=== PATIENT | female | born 1935 | race Caucasian/White ===

== ENCOUNTER 2016-11-21 09:59 | Emergency (ER) | payer OTHER ==
--- NOTE | ~2016-11-21 | CR72 ---
[facility] A Service of [facility] RADIOLOGY TEXT RESULTS PATIENT: JUAN ANTONIO ALFARO LOCATION: [facility] : 35 UNIT #: [id number] AGE: [address]: Garett Cartwright MD SEX: F ORDER DR: [id number] [facility] [address] [place], [place] [address] [id number] MR#: [id number] Acc #: [id number] NAME: JUAN ANTONIO ALFARO : 1935 SEX: F STUDY DATE/TIME: 11/21/2016 10:21 UNIT: [facility] ROOM: STUDY DESCRIPTION: CR Chest Single View Portable Attending Physician: Garett Cartwright M.D. Ordering Physician: Garett Cartwright M.D. Primary Care Physician: Yves Howell Jr., M.D. MEDICAL IMAGING REPORT This report is preliminary unless electronic signature is present EXAM Portable chest INDICATION Cough, shortness of air today. FINDINGS A portable view of the chest was obtained. The heart size and vascularity are normal and the lungs are clear. The bones are unremarkable. IMPRESSION No active disease. Dictated by... Maurice Newberry M.D. THIS IS AN ELECTRONICALLY VERIFIED REPORT Maurice Newberry M.D. at 11/21/2016 2:49 PM ZINA/rayray TD: 11/21/2016 13:20 JOB #: [id number] MEDICAL IMAGING REPORT Page 1 of 1 COPY
--- NOTE | ~2016-11-21 | EKG ---
PATIENT: JUAN ANTONIO ALFARO UNIT #: [id number] Ventricular Rate: 111 BPM Atrial Rate: 111 BPM P-R Interval: 148 ms QRS Duration: 126 ms Q-T Interval: 374 ms QTC Calculation(Bezet): 508 ms P Nelson: 75 degrees Calculated R Nelson: 103 degrees Calculated T Nelson: 14 degrees Diagnosis Line: Sinus tachycardia Diagnosis Line: Right bundle branch block Diagnosis Line: Abnormal ECG Diagnosis Line: No previous ECGs available Diagnosis Line: Confirmed by DORINDA ROJAS MD ([id number]) on 11/24/2016 Diagnosis Line: 7:00:14 AM INTERPRETING MD: BOB BASILIO
[~2016-11-21 09:59] MED LIST: ATENOLOL25 MG PO; ATORVASTATIN CA80 MG PO; FLUOXETINE HCL20 M1 PO; LISINOPRIL5 MG PO; METFORMIN HCL500 M1 PO; MULTIPLE VITAMI1 T13 PO
[2016-11-21 11:00] LABS: BASOPHIL# 0.1 X10e3 (0-0.3); BASOPHIL% 0.9 % (0-2.5); EOSINOPHIL# 0.2 X10e3 (0-0.7); HEMOGLOBIN 13.1 gm/dL (12.0-16.0); LYMPHOCYTE# 1.7 X10e3 (1.0-3.5); LYMPHOCYTE% 17.4 % (17.0-45.0); MEAN CELL VOLUME 82.6 FL (83-96); MEAN CORPUSCULAR HEMOGLOBIN 27.8 PG (28-34); MEAN CORPUSCULAR HGB CONC 33.6 g/dL (30-36); MEAN PLATELET VOLUME 7.8 FL (6.5-11.5); MONOCYTE# 0.4 X10e3 (0-1.0); MONOCYTE% 3.9 % (3.0-12.0); NEUTROPHIL# 7.6 X10e3 (1.5-7.1); NEUTROPHIL% 75.8 % (40-75); PLATELET COUNT 270 X10e3 (140-420); RED BLOOD COUNT 4.71 X10e (3.90-5.30); RED CELL DISTRIBUTION WIDTH 14.4 % (11.0-15.5)
[2016-11-21 11:01] LABS: DIFF IND NO
[2016-11-21 11:05] LABS: POC - CKMB 1.8 ng/mL (0.0-7.9); POC - TROPONIN <0.05 ng/mL (<=0.05)
[2016-11-21 11:27] LABS: ALBUMIN SERUM 4.3 g/dL (3.5-5.0); BILIRUBIN, DIRECT 0.1 mg/dL (0.0-0.2); BILIRUBIN,INDIRECT 0.4 mg/dL (0.0-0.9); BILIRUBIN,TOTAL 0.5 mg/dL (0.2-2.0); BUN/CREATININE RATIO 28.57; CALCIUM SERUM 9.4 mg/dL (8.4-10.2); CREATININE SERUM 0.7 mg/dL (0.6-1.4); GLOM FILT RATE Estimated 81.3 mL/min (>60); POTASSIUM 3.9 mmol/L (3.5-5.1); PROTEIN TOTAL SERUM 7.6 g/dL (6.0-8.3)
[2016-11-21 12:32] LABS: POC - CKMB 1.5 ng/mL (0.0-7.9); POC - TROPONIN <0.05 ng/mL (<=0.05)
[2016-11-21 12:36] LABS: URINE SOURCE CLEAN CATCH
[2016-11-21 12:41] LABS: URINE APPEARANCE CLEAR; URINE BILIRUBIN NEG (NEG); URINE BLOOD NEG (NEG); URINE COLOR YELLOW; URINE GLUCOSE NEG (NEG); URINE KETONE NEG (NEG); URINE LEUKOCYTE ESTERASE NEG (NEG); URINE NITRATE NEG (NEG); URINE PH 7.5 (5-8); URINE PROTEIN 1+ (NEG); URINE SPECIFIC GRAVITY 1.013 (1.003-1.035); URINE UROBILINOGEN 0.2 MG/DL (NEG)
[2016-11-21 12:44] LABS: CULTURE INDICATED? NO; U HYALINE CASTS AUWI 0-2 /[LPF]; URBCS1 AUWI 0-2 /[HPF] (0-2); URINE BACTERIA AUWI NEG (NEGATIVE); URINE SQUAMOUS EPITHELIAL CELL OCC /[HPF]; UWBCS1 AUWI 0-2 (0-5)
== END 2016-11-21 13:29 | disposition home or self-care (01) ==
LOC: CED 09:59
PROVIDERS: Emergency Medicine
DX: J44.1 Chronic obstructive pulmonary disease with (acute) exacerbation (principal); E11.9 Type 2 diabetes mellitus without complications; I10 Essential (primary) hypertension; E78.5 Hyperlipidemia, unspecified
CPT/HCPCS: 36415; 51701; 71010; 80048; 80076; 81003; 82553; 84484; 85025; 87040; 93005; 94640; 99285; J2930

== ENCOUNTER 2016-11-25 17:48 | Inpatient (IN) | payer OTHER ==
[~2016-11-25] VITALS: Ht 157.5 cm; Wt 54.6 kg
--- NOTE | ~2016-11-25 | CT16 ---
[facility] A Service [facility] RADIOLOGY TEXT RESULTS PATIENT: JUAN ANTONIO ALFARO LOCATION: [facility] 302-01 : 35 UNIT #: [id number] AGE: [address]: Pablo Juárez MD SEX: F ORDER DR: [id number] [place], [place] [address] [id number] I MR#: [id number] Acc #: [id number] NAME: JUAN ANTONIO ALFARO : 1935 SEX: F STUDY DATE/TIME: 11/30/2016 19:53 UNIT: [facility] ROOM: [facility] STUDY DESCRIPTION: CT Angio Chest for PE Attending Physician: Pablo Juárez M.D. Referring Physician: Primary Care Physician No Ordering Physician: Croey Winston M.D. Primary Care Physician: Primary Care Physician No MEDICAL IMAGING REPORT This report is preliminary unless electronic signature is present EXAM CT angiogram chest with IV contrast HISTORY Shortness of air for 5 days. Elevated D-dimer. TECHNIQUE IV contrast enhanced CT angiogram of the chest was performed with 3-D reconstructions. This CT exam was performed with one or more of the following radiation dose reduction techniques: automatic exposure control, adjustment of mA and/or kV according to patient size, and iterative reconstruction. FINDINGS No pulmonary embolus. Normal pulmonary arterial enhancement. Minimal left pleural effusion. Mild subsegmental atelectasis in the anterior left lower lobe and in the inferior lower lobes bilaterally. Multifocal small patchy areas of subsegmental ground-glass infiltrate in the bilateral upper lobes could be infectious or inflammatory. Very small hiatal hernia. Mild dilatation of the descending thoracic aorta measuring 3.1 cm in diameter. IMPRESSION 1. No pulmonary embolus. 2. Minimal left pleural effusion. 3. Mild multifocal atelectasis in the lower lobes. 4. Multiple small patchy ground-glass infiltrates in the bilateral upper lobes are nonspecific and could be infectious or inflammatory. 5. Very small hiatal hernia. Dictated by... [facility] A Service [facility] RADIOLOGY TEXT RESULTS PATIENT: JUAN ANTONIO ALFARO LOCATION: [facility] 302-01 : 35 UNIT #: [id number] AGE: [address]: Pablo Juárez MD SEX: F ORDER DR: Sandro Ponce M.D. THIS IS AN ELECTRONICALLY VERIFIED REPORT Sandro Ponce M.D. at 12/01/2016 11:44 PM JAZZ/tamar TD: 12/01/2016 08:25 JOB #: [id number] MEDICAL IMAGING REPORT Page 1 of 1 COPY
--- NOTE | ~2016-11-25 | CR72 ---
[facility] A Service of [facility] RADIOLOGY TEXT RESULTS PATIENT: JUAN ANTONIO ALFARO LOCATION: [facility] 302-01 : 35 UNIT #: [id number] AGE: [address]: Pablo Juárez MD SEX: F ORDER DR: [id number] [facility] [address] [place], [place] [address] [id number] I MR#: [id number] Acc #: [id number] NAME: JUAN ANTONIO ALFARO : 1935 SEX: F STUDY DATE/TIME: 11/30/2016 5:48 UNIT: [facility] ROOM: [facility] STUDY DESCRIPTION: CR Chest Single View Portable Attending Physician: Pablo Juárez M.D. Referring Physician: No Primary Care Physician Ordering Physician: Corey Winston M.D. Primary Care Physician: No Primary Care Physician MEDICAL IMAGING REPORT This report is preliminary unless electronic signature is present EXAM Portable AP view of the chest COMPARISON November 29, 2016, November 26, 2016 and November 25, 2016. INDICATION 81-year-old female with dyspnea for 5 days. History of hypertension. COPD exacerbation requiring inpatient hospital admission. FINDINGS AND IMPRESSION Right arm PICC is stable with the tip terminating in the SVC. Cardiomediastinal silhouette is stable. No evidence of pneumothorax, pleural effusion or pneumonia. Skin fold artifact over the left chest. Dictated by... Rafael Coronado M.D. THIS IS AN ELECTRONICALLY VERIFIED REPORT Rafael Coronado M.D. at 12/03/2016 10:31 PM BLM/shadi TD: 11/30/2016 08:22 JOB #: [id number] MEDICAL IMAGING REPORT Page 1 of 1 COPY
--- NOTE | ~2016-11-25 | CO ---
Unit #: [id number] #: [id number] Patient: JUAN ANTONIO ALFARO 911140 [address] [address] [id number] MR#: [id number] NAME: JUAN ANTONIO ALFARO ROOM: [facility] Age: 81 Sex: F Admission Date: 11/25/2016 : 1935 Attending Physician: Pablo Juárez M.D. Primary Care Physician: No Primary Care Physician Consultation Date: 11/27/2016 CONSULTATION REPORT REASON FOR CONSULT ICU management. REASON FOR ADMISSION Shortness of breath and confusion. HISTORY OF PRESENT ILLNESS This is a very pleasant, 81-year-old female with past medical history significant for hypertension, hyperlipidemia, COPD, diabetes, depression, who presented to the emergency room with multiple issues including progressive shortness of breath, cough, confusion and urinary retention. Per daughter, the patient lives alone and she was very independent. The patient was seen at our emergency room a week ago for shortness of breath and she was released home. However, her condition continued worsen over time and she was becoming more short winded and coughing. There was no reported fever. The patient also was started on new inhalers which thought to contribute to urinary retention and low urine output. Yesterday night, the patient was transferred to our hospital again for worsening shortness of breath and confusion. The patient was admitted to the floor. However, she was transferred emergently overnight due to worsening respiratory status with hypoxia and restlessness. The patient was placed on BiPAP; however, her condition continued to decline and we had discussed with the family other options like intubation. However, family decided to give BiPAP more time before making any final decision. Luckily, in the meanwhile, the patient started responding further to BiPAP and her condition slightly improved. PAST MEDICAL HISTORY 1. Hypertension. 2. Hyperlipidemia. 3. COPD. 4. Depression. 5. Diabetes. 6. Degenerative joint disease. PAST SURGICAL HISTORY Bilateral total hip replacement. SOCIAL HISTORY The patient lives alone and she is very independent. She smoked one pack per day of tobacco from age 18 until age 80 but she stopped smoking a few Unit #: [id number] #: [id number] Patient: JUAN ANTONIO ALFARO years ago. No history of alcohol or drug abuse. FAMILY HISTORY Noncontributory given her age. ALLERGIES No known drug allergy. HOME MEDICATION Unavailable but, per daughter, the patient takes probably: 1. Spiriva. 2. Albuterol 3. Symbicort. 4. Metformin. 5. Lipitor. 6. Norvasc. 7. Prozac. 8. Atenolol. REVIEW OF SYSTEMS A 12-point review of systems we are unable to obtain as the patient is confused right now. PHYSICAL EXAMINATION GENERAL APPEARANCE: The patient is in acute distress, mainly respiratory. VITAL SIGNS: Blood pressure 167/73. Respiratory rate ranging between 30 to 40 times per minute. Heart rate 125. O2 saturation between 85 and 92. HEENT: Head: Atraumatic, normocephalic. PERRLA. EOMI. NECK: Supple. No JVD. No lymphadenopathy. CHEST: Diffuse bilateral wheezing and rhonchi. HEART: S1, S2. No murmur or gallops are auscultated. ABDOMEN: Soft, nontender. Bowel sounds positive. No hepatosplenomegaly. EXTREMITIES: No edema or cyanosis. SKIN: No rash. CENTRAL NERVOUS SYSTEM: Awake, alert but confused. She is moving all extremities with no focal weakness. DIAGNOSTIC STUDIES LABORATORY: Hematocrit 38.2, WBC count 12.8. Chloride 95. pCO2 52. IMAGING: Chest x-ray is consistent with right lower lobe pneumonia. ASSESSMENT 1. Acute hypoxic respiratory failure. 2. Toxic metabolic encephalopathy. 3. Community-acquired pneumonia. 4. Acute exacerbation of chronic obstructive pulmonary disease. 5. Hypertension. 6. Hyperlipidemia. 7. Diabetes. PLAN 1. The patient will be continued on BiPAP and maybe will transition to high flow if tolerated. Her CODE status is FULL and we discussed with the family possible intubation if needed. 2. We will adjust antibiotics to cover community-acquired pneumonia. 3. Bronchodilator and mucolytics. 4. IV steroids with caution given her history of diabetes. Unit #: [id number] #: [id number] Patient: JUAN ANTONIO ALFARO 5. Urinary retention per Urology. 6. Blood pressure and blood sugar control. Critical care time spent on this patient was 36 minutes. Dictated by... Shiva Guzman TD: 11/27/2016 14:07 JOB #: [id number] CONSULTATION REPORT Page 1 of 1 X FELICIA MISHRA MD CONSULTATION REPORT
--- NOTE | ~2016-11-25 | CR72 ---
[facility] A Service of [facility] RADIOLOGY TEXT RESULTS PATIENT: JUAN ANTONIO ALFARO [address]ATION: [address] : 35 UNIT #: [id number] AGE: [address]: Pablo Juárez MD SEX: F ORDER DR: [id number] [facility] [address] [place], [place] [address] [id number] I MR#: [id number] Acc #: [id number] NAME: JUAN ANTONIO ALFARO : 1935 SEX: F STUDY DATE/TIME: 11/29/2016 03:39 UNIT: [facility] ROOM: [facility] STUDY DESCRIPTION: CR Chest Single View Portable Attending Physician: Pablo Juárez M.D. Referring Physician: Primary Care Physician No Ordering Physician: Corey Winston M.D. Primary Care Physician: Primary Care Physician No MEDICAL IMAGING REPORT This report is preliminary unless electronic signature is present EXAM Portable chest, 11/29/2016 at 03:39 INDICATION Respiratory failure for 4 days. Smoker. FINDINGS AP portable chest compared with 11/26/2016. Heart is enlarged. Lung volumes are lower. There is some mild infiltrate or atelectasis in both bases. Right arm PICC at cavoatrial junction. No pneumothorax. Dictated by... See Lombardo Jr., M.D. THIS IS AN ELECTRONICALLY VERIFIED REPORT See Lombardo Jr., M.D. at 11/30/2016 3:15 AM RAFA/jorje TD: 11/29/2016 21:58 JOB #: [id number] MEDICAL IMAGING REPORT Page 1 of 1 COPY
--- NOTE | ~2016-11-25 | EKG ---
PATIENT: JUAN ANTONIO ALFARO UNIT #: [id number] Ventricular Rate: 87 BPM Atrial Rate: 87 BPM P-R Interval: 146 ms QRS Duration: 128 ms Q-T Interval: 404 ms QTC Calculation(Bezet): 486 ms P [place]: 77 degrees Calculated R [place]: 17 degrees Calculated T [place]: 35 degrees Diagnosis Line: Sinus rhythm with Premature atrial complexes Diagnosis Line: Right bundle branch block Diagnosis Line: Abnormal ECG Diagnosis Line: When compared with ECG of 21-NOV-2016 10:30, Diagnosis Line: Premature atrial complexes are now Present Diagnosis Line: Confirmed by DORINDA ROJAS MD ([id number]) on 11/26/2016 Diagnosis Line: 7:13:31 PM INTERPRETING MD: BOB BASILIO
--- NOTE | ~2016-11-25 | HP ---
Unit #: [id number] #: [id number] Patient: JUAN ANTONIO ALFARO [id number] [address] [place], [place] [address] [id number] I MR#: [id number] NAME: JUAN ANTONIO ALFARO ROOM: 07[address] Age: 81 Sex: F Admission Date: 11/25/2016 : 1935 Attending Physician: Wendy Fowler M.D. HISTORY AND PHYSICAL CHIEF COMPLAINT Urinary retention and COPD exacerbation with acute on chronic respiratory failure. HISTORY OF PRESENT ILLNESS This pleasant 81-year-old female with hypertension, COPD, and AODM, is admitted for shortness of breath and urinary retention. The patient has a history of COPD and developed increasing shortness of breath with bronchospasm about two weeks ago. She was seen both in this emergency department, as well as by [facility]. She was placed on three liters of oxygen two or three days ago. She states that she was also started on a new inhaler which probably was Symbicort. Over the past two days, she has been experiencing difficulty urinating. She currently is feeling quite a bit of bladder pressure and is unable to void. She has had a somewhat what sounds to be shy bladder in the past but has always been able to urinate at home without difficulty. In the emergency department, a bladder scan was performed, and the patient had over 900 mL of urine in her bladder. A Becker catheter was placed with improvement of symptoms. Her initial O2 saturation was 87% on three liters, and she was treated with Solu-Medrol, along with bronchodilators. On examination, she has significant bronchospasm. She does have a minor cough with the above, and chest x-ray shows no acute disease. She denies chest pain, increasing back pain, or constipation with the above, and no complaints of leg weakness. PAST MEDICAL HISTORY 1. Hypertension. 2. Hyperlipidemia. 3. Chronic obstructive pulmonary disease recently started on oxygen. 4. Adult-onset diabetes mellitus. 5. Depression. 6. Degenerative joint disease. 7. Bilateral total hip replacements. ALLERGIES No known drug allergies. HOME MEDICATIONS I believe patient was started on Spiriva recently. She uses albuterol, Symbicort 160/4.5 at 2 puffs b.i.d., metformin 500 mg b.i.d., Lipitor 80 mg daily, Norvasc 5 mg daily, Prozac 20 mg daily, and atenolol 25 mg daily. FAMILY HISTORY Unit #: [id number] #: [id number] Patient: JUAN ANTONIO ALFARO Noncontributory given patient's age. SOCIAL HISTORY The patient lives alone. She smoked one pack per day of tobacco from age 18 until age 80. She stopped smoking a year ago. She does not drink alcohol. REVIEW OF SYSTEMS Notable for increasing shortness of breath and bronchospasm, urinary retention, suprapubic pressure, diabetes, hypertension, hyperlipidemia, COPD, depression, DJD, and hip replacements. All other systems were reviewed and otherwise negative. PHYSICAL EXAMINATION GENERAL: A pleasant, thin, 81-year-old female currently in no acute distress. VITAL SIGNS: Temperature 99.1, pulse 92, respirations 16, blood pressure 146/85, and O2 saturation was 87% on 3 liters of oxygen. HEENT: Eyes PERRLA. Extraocular muscles are intact. Pharynx is benign. NECK: Supple without adenopathy or thyromegaly. CHEST: Expiratory wheezes throughout and rhonchi. CARDIAC: Normal S1 and S2 without definite murmur. ABDOMEN: Bowel sounds are present. Patient has suprapubic fullness on exam. No hepatosplenomegaly. EXTREMITIES: Without clubbing, cyanosis, or edema. Pedal pulses are diminished. NEUROLOGIC: Patient is awake, alert, and oriented. Her cranial nerves are intact. She has good strength throughout. DIAGNOSTIC STUDIES LABORATORY: Hematocrit 38.6, white blood count 12.8, and normal platelet count. SMA-12 with glucose 164, BUN 22, creatinine 0.7, and chloride is 95. Coags normal. Cardiac markers negative. ABG shows pH of 7.46, PCO2 of 35, PO2 of 52.4, and O2 saturation 87.4% on 3 liters of oxygen. Urinalysis with trace protein, otherwise negative. IMAGING: Chest x-ray with no acute disease and is unchanged. CARDIOLOGY: EKG shows sinus rhythm with PACs, rate about 88. Right bundle branch block which was noted recently as well. ASSESSMENT 1. Urinary retention. Will check the patient's inhalers. She states that she was recently started on an inhaler with the first letter S. I wonder if this is Spiriva. Spiriva does have anticholinergic effects. Possibly this is the cause of her urinary retention. 2. Chronic obstructive pulmonary disease exacerbation with acute on chronic hypoxic respiratory failure. 3. Essential hypertension. 4. Adult-onset diabetes mellitus. 5. Hyperlipidemia. 6. Depression. 7. Degenerative joint disease. PLANS 1. Will give gentle IV fluids given large urinary output. 2. Albuterol nebulizer, mucolytics, Symbicort, steroids, and doxycycline. Will ask family to bring in all inhalers. If the Unit #: [id number] #: [id number] Patient: JUAN ANTONIO ALFARO patient is taking Spiriva, would hold Spiriva as this can cause urinary retention. 3. Becker catheter, Flomax. 4. DVT and gastritis prophylaxis. 5. Sliding scale insulin for now. 6. Further workup and consultants depending on above. 1. Dictated by Shiva Krishnan/jaime TD: 11/25/2016 21:55 JOB #: [id number] CC: Yves Howell Jr., M.D. HISTORY AND PHYSICAL Page 1 of 1 X Wendy Fowler MD HISTORY AND PHYSICAL
--- NOTE | ~2016-11-25 | CR72 ---
[facility] A Service of [facility] RADIOLOGY TEXT RESULTS PATIENT: JUAN ANTONIO ALFARO LOCATION: [facility] 562- : 35 UNIT #: [id number] AGE: [address]: Pablo Juárez MD SEX: F ORDER DR: [id number] [facility] [address] [place], [place] [address] [id number] I MR#: [id number] Acc #: [id number] NAME: JUAN ANTONIO ALFARO : 1935 SEX: F STUDY DATE/TIME: 11/25/2016 18:28 UNIT: [facility] ROOM: [facility] STUDY DESCRIPTION: CR Chest Single View Portable Attending Physician: Wendy Fowler M.D. Referring Physician: Primary Care Physician No Ordering Physician: Aquilino Aparicio D.O. Primary Care Physician: Primary Care Physician No MEDICAL IMAGING REPORT This report is preliminary unless electronic signature is present EXAM Chest portable, 11/25/2016 18:28 hours HISTORY 81-year-old woman with 1-week history of shortness of air, weakness and nausea. History of hypertension, COPD, diabetes. COMPARISON 11/21/2016 FINDINGS Single upright portable view demonstrates normal heart size. Aorta is minimally tortuous but unchanged. The lungs remain clear. There is no effusion or pneumothorax. IMPRESSION No acute cardiopulmonary findings. No change from 11/21/2016. Dictated by... Jessica Arreguin M.D. THIS IS AN ELECTRONICALLY VERIFIED REPORT Jessica Arreguin M.D. at 11/26/2016 9:08 AM Shoaib TD: 11/26/2016 08:18 JOB #: [id number] MEDICAL IMAGING REPORT Page 1 of 1 COPY
--- NOTE | ~2016-11-25 | CT71 ---
[facility] A Service of [facility] RADIOLOGY TEXT RESULTS PATIENT: JUAN ANTONIO ALFARO LOCATION: [address] : 35 UNIT #: [id number] AGE: [address]: Pablo Juárez MD SEX: F ORDER DR: [id number] [facility] [address] [facility] [place], [place] [address] [id number] I MR#: [id number] Acc #: [id number] NAME: JUAN ANTONIO ALFARO : 1935 SEX: F STUDY DATE/TIME: 11/30/2016 19:51 UNIT: [facility] ROOM: [facility] STUDY DESCRIPTION: CT Head Wo Contrast Attending Physician: Pablo Juárez M.D. Referring Physician: Primary Care Physician No Ordering Physician: Corey Winston M.D. Primary Care Physician: Primary Care Physician No MEDICAL IMAGING REPORT This report is preliminary unless electronic signature is present EXAM Head CT without HISTORY Confusion and shortness of breath for 5 days. History of hypertension. History of diabetes and depression. COMMENT Routine noncontrast head CT is reviewed. There is no comparison. This CT exam was performed with one or more of the following radiation dose reduction techniques: Automatic exposure control, adjustment of mA and/or kV according to patient size, and iterative reconstruction. There is no displaced calvarial fracture. There is partial opacification of left side mastoid air cells with a small air-fluid level. Please correlate for clinical evidence of infection. The visualized paranasal sinuses show only mild mucosal thickening. There are vascular calcifications at the base of the brain. There is generalized atrophy and moderate white matter low attenuation, which is nonspecific but probably due to small vessel disease. The basilar cisterns are patent. There is no intracranial mass effect. There is no evidence for acute intracranial hemorrhage. Probably chronic lacunar insults and prominent perivascular spaces in the bilateral basal ganglia. If there is clinical concern for acute CVA, followup imaging would be suggested preferably with MRI if the patient is a candidate. No acute cortical infarct is currently suspected. IMPRESSION 1. Atrophy and probable sequelae of small vessel disease. No acute cortical infarct is suspected but if there is clinical concern for acute CVA, followup imaging would be suggested preferably with MRI if patient is candidate. 2. There is fluid partly opacifying the left side mastoid air cells with STS. [facility] A Service of [facility] RADIOLOGY TEXT RESULTS PATIENT: JUAN ANTONIO ALFARO LOCATION: [address] : 35 UNIT #: [id number] AGE: [address]: Pablo Juárez MD SEX: F ORDER DR: a small air-fluid level. Please correlate for clinical concern for infection. STAT * RESULT Dictated by... Myrtle Childs M.D. THIS IS AN ELECTRONICALLY VERIFIED REPORT Myrtle Childs M.D. at 11/30/2016 10:41 PM MICAELA/psc TD: 11/30/2016 20:41 JOB #: [id number] MEDICAL IMAGING REPORT Page 1 of 1 COPY
--- NOTE | ~2016-11-25 | CO ---
Unit #: [id number] #: [id number] Patient: EMILIA GARRISON [id number] [address] [address] [id number] I MR#: [id number] NAME: EMILIA GARRISON ROOM: [facility] Age: 81 Sex: F Admission Date: 11/25/2016 : 1935 Attending Physician: Pablo Juárez M.D. Primary Care Physician: Primary Care Physician No Consultation Date: 11/29/2016 CONSULTATION REPORT REASON FOR CONSULTATION Hyponatremia. Thank you very much for asking me to see this patient in consultation. HISTORY OF PRESENT ILLNESS Ms. Emilia Garrison is an 81-year-old, female, who presented to the hospital on 11/25/2016 complaining of shortness of breath as well as some difficulty urinating. She apparently had a bladder scan that showed 900 mL postvoid residual. Becker catheter was placed. The patient was started on steroids and antibiotics upon admission here. She was noted upon admission to have a sodium of 129, it decreased to 124 several days ago, 126 yesterday and back down to 123 today. Because of this, I was asked to see the patient. The patient was noted on 11/21/2016 to have a sodium of 135. She is alert, but very tired. She states she has never had any problems with her sodium that she knows of. She is a chronic smoker for many, many years, but stopped last year. PAST MEDICAL HISTORY 1. History of COPD. 2. History of urinary retention. 3. History of hypertension. 4. History of non-insulin dependent diabetes mellitus. 5. History of hyperlipidemia. 6. History of depression. 7. History of degenerative disk/joint disease, status post bilateral hips. ALLERGIES No known drug allergies. SOCIAL HISTORY Lives alone. Positive smoker until a year ago. None now. No alcohol. MEDICATIONS Currently include Prozac, which she was on when came in, Rocephin, hydralazine, Zosyn, Protonix, Tenormin, Solu-Medrol, doxycycline, atorvastatin, Zofran, Norvasc, and Flomax. REVIEW OF SYSTEMS She denies any headaches or dizziness currently. Visual problems, sinus problems. No cough. No hemoptysis. She denies any neck pain or neck stiffness. She says she is having some intermittent shortness of breath that is improving. She is nauseated today. No vomiting. She has decreased energy. She denies any severe abdominal pain. No significant Unit #: [id number] #: [id number] Patient: EMILIA GARRISON lower extremity swelling. No recent seizures, strokes or skin rashes. FAMILY HISTORY Noncontributory. PHYSICAL EXAMINATION GENERAL: She is alert. VITAL SIGNS: Temperature is 97.9, pulse 57 to 79, blood pressure 93 to 157/40s to 70s. She had 2871 in and 1645 out. She was on normal saline until yesterday evening and since admission, she has had about 2.8 L more in than out. HEENT: She is normocephalic and atraumatic. Pupils are equal, round, and reactive to light. Extraocular muscles are intact. Hearing appears normal. Mouth clear. No erythema. No exudate. NECK: Supple. No adenopathy. CARDIAC: She has regular rhythm without a rub. No S3 or S4. LUNGS: Have few bilateral rhonchi. ABDOMEN: Bowel sounds positive. Nontender. Soft. No masses felt. No hepato-organomegaly noted. EXTREMITIES: She has no lower extremity swelling. SKIN: No rashes. JOINTS: No joint pain or joint swelling. : Becker catheter is in place. DIAGNOSTIC STUDIES IMAGING STUDIES: Chest x-ray, which showed a right-sided pneumonia. LABORATORY RESULTS: Last ABG showed a pH of 7.425, pCO2 of 35, pO2 of 71, calcium 7.9, albumin is 3. TSH 0.72. Her sodium is 123, potassium 3.4, chloride is 95, bicarb 21, BUN and creatinine of 23 and 0.6, glucose 151. Urine osmolality is 640. Urine sodium is 114. Hemoglobin 11.7, white count 23827, and platelets 301. ASSESSMENT/PLAN 1. Hyponatremia. This is a lady who appears to have either euvolemia versus a hypovolemic hyponatremia. She has had more in than out with IV saline and her sodium did not really improve, which makes it less likely volume depletion, although it certainly could be. She is also on Prozac that can cause a syndrome of inappropriate antidiuretic hormone type picture, although she has been on that prior to her admission. 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 Certainly, it could be related to underlying lung disease on top of her Prozac. I am going to check urine for Legionella antigen since she does have a new pneumonia and hyponatremia, to rule out Legionnaires disease. We will tighten up her p.o. fluid restriction. We will hold off on any IV fluids for now, but we will give her one dose of Samsca 15 mg. We will check a BMP later today and depending on what her sodium shows depending on what further workup and treatment. She also has a low potassium and that can cause some cellular shifts of sodium, but certainly not to the level of where her sodium is now. We will go ahead and replace the potassium orally. 2. Chronic obstructive pulmonary disease. 3. Pneumonia. 4. History of urinary retention. 5. Hypertension. Would certainly avoid any thiazide diuretics at this time. Unit #: [id number] #: [id number] Patient: EMILIA GARRISON Dictated by... Shiva Paz/natalial TD: 11/30/2016 05:35 JOB #: [id number] CONSULTATION REPORT Page 1 of 1 X Kushal Nichols MD X CONSULTATION REPORT
--- NOTE | ~2016-11-25 | CR72 ---
[facility] A Service of [facility] RADIOLOGY TEXT RESULTS PATIENT: JUAN ANTONIO ALFARO LOCATION: [facility] 562-01 : 35 UNIT #: [id number] AGE: [address]: Pablo Juárez MD SEX: F ORDER DR: [id number] [facility] [address] [facility] [place], [place] [address] [id number] I MR#: [id number] Acc #: [id number] NAME: JUAN ANTONIO ALFARO : 1935 SEX: F STUDY DATE/TIME: 11/26/2016 21:17 UNIT: [facility] ROOM: [facility] STUDY DESCRIPTION: CR Chest Single View Portable Attending Physician: Pablo Juárez M.D. Referring Physician: No Primary Care Physician Ordering Physician: Wendy Fowler M.D. Primary Care Physician: No Primary Care Physician MEDICAL IMAGING REPORT This report is preliminary unless electronic signature is present EXAM Frontal chest, 11/26/2016. INDICATIONS 81-year-old female with low O2 sats. Short of air, cough, symptoms a week. TECHNIQUE Frontal chest. COMPARISON Compared with 11/25/2016. Comparison also made with 11/21/2016. FINDINGS Cardiac silhouette is within normal limits. The vascularity is unremarkable. Lung volumes are low. Coarsened interstitial markings suggest an element of underlying fibrosis and scarring. There is no pneumothorax or effusion. In the right lung base, there is partial obscuration of the right heart border and right hemidiaphragm. These findings are new compared to the prior study and suspicious for pneumonia in the appropriate clinical context. Follow up to clearing is recommended. IMPRESSION 1. New parenchymal opacities obscuring the right hemidiaphragm and right heart border suspicious for pneumonia. Follow up to clearing recommended. 2. Background changes of chronic interstitial lung disease. No effusion or pneumothorax. STAT * RESULT [facility] A Service [facility] RADIOLOGY TEXT RESULTS PATIENT: JUAN ANTONIO ALFARO LOCATION: [facility] 562-01 : 35 UNIT #: [id number] AGE: [address]: Pablo Juárez MD SEX: F ORDER DR: Dictated by... Moses Tian M.D. THIS IS AN ELECTRONICALLY VERIFIED REPORT Moses Tian M.D. at 11/26/2016 11:35 PM JOSÉ/loren TD: 11/26/2016 22:07 JOB #: [id number] MEDICAL IMAGING REPORT Page 1 of 1 COPY
--- NOTE | ~2016-11-25 | CR6 ---
[facility] A Service of [facility] & [facility] RADIOLOGY TEXT RESULTS PATIENT: JUAN ANTONIO ALFARO LOCATION: [address]06 : 35 UNIT #: [id number] AGE: [address]: Pablo Juárez MD SEX: F ORDER DR: [id number] [facility] [address] [place], [place] [address] [id number] I MR#: [id number] Acc #: [id number] NAME: JUAN ANTONIO ALFARO : 1935 SEX: F STUDY DATE/TIME: 11/27/2016 6:15 [facility] STUDY DESCRIPTION: CR Abdomen Portable Sng View Attending Physician: Pablo Juárez M.D. Referring Physician: No Primary Care Physician Ordering Physician: Wendy Fowler M.D. Primary Care Physician: No Primary Care Physician MEDICAL IMAGING REPORT This report is preliminary unless electronic signature is present EXAM Portable abdomen. HISTORY Abdominal pain starting today with nausea. FINDINGS A supine view of the abdomen was obtained. The bowel gas pattern is normal. Bilateral hip prostheses are present. IMPRESSION Normal bowel gas pattern. Dictated by... Maurice Newberry M.D. THIS IS AN ELECTRONICALLY VERIFIED REPORT Maurice Newberry M.D. at 11/27/2016 12:24 PM ZINA/silvia TD: 11/27/2016 10:36 JOB #: [id number] MEDICAL IMAGING REPORT Page 1 of 1 COPY
--- NOTE | ~2016-11-25 | DS ---
Unit #: [id number] #: [id number] Patient: JUAN ANTONIO ALFARO [id number] [address] [address] [id number] I MR#: [id number] NAME: JUAN ANTONIO ALFARO ROOM: 302 Age: 81 Sex: F Admission Date: 11/25/2016 : 1935 Discharge Date: 12/03/2016 Attending Physician: Pablo Juárez M.D. Primary Care Physician: No Primary Care Physician DISCHARGE SUMMARY DISCHARGE DIAGNOSES 1. Acute on chronic hypoxic respiratory failure. 2. Pneumonia. 3. Acute exacerbation of chronic obstructive pulmonary disease. 4. Urinary retention. 5. Diabetes. 6. Hyponatremia. 7. Toxic metabolic encephalopathy. HOSPITAL COURSE The patient is an 81-year-old female who presented to [facility] Emergency Department secondary to shortness of breath. She states that she had worsening shortness of breath beginning approximately 2 weeks prior to presentation. In the emergency department she was noted to be satting in the 80s on her home dose of 3 liters of O2. She was admitted and started on Solu-Medrol, bronchodilators and increased oxygen. Additionally she had some abdominal pain and was noted to have 900 mL of urine in her bladder after Becker placement. The patient's oxygen requirements initially worsened significantly. Her initial admission to monitored bed and requirement of 11 liters ultimately did not hold her, and she was transferred to the ICU and placed on heated high flow. She required (1) liters to maintain her sats in the 90s initially. The patient continued on steroids and oxygen and breathing treatments, and slowly her oxygen requirements did improve, however. She was noted to have developed hyponatremia over the course of the hospitalization and was seen by nephrology. 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 Her sodium has improved from 124 to 133 at discharge. Sputum cultures collected 11/29/16 ultimately grew 3+ Pseudomonas. She was started on cefepime, although her procalcitonin was negative. It is unclear if this is colonization or pneumonia. However, given her degree of respiratory failure, the patient has been treated for pneumonia. Given the treatments described above, which included IV steroids, breathing treatments, increased oxygen and antibiotics, the patient's oxygen requirements have, at this time, decreased such that she is now back to her baseline. As such, she is being discharged home to finish antibiotic therapy and a steroid taper. DISCHARGE MEDICATIONS 1. Albuterol sulfate q.i.d. Unit #: [id number] #: [id number] Patient: JUAN ANTONIO ALFARO 2. Symbicort 160/4.5 mcg 2 puffs b.i.d. 3. Prednisone taper. 4. Flomax 0.4 mg p.o. q.h.s. 5. Prozac 40 mg daily. 6. Metformin 500 mg p.o. b.i.d. 7. Lipitor 80 mg p.o. q.h.s. 8. Norvasc 5 mg daily. 9. Atenolol 25 mg p.o. daily. 10. Guaifenesin 600 mg p.o. b.i.d. 11. Levaquin 750 mg p.o. daily. FOLLOWUP 1. Patient to follow up with [facility] in 1-2 weeks. 2. Additionally, she is to follow up with Dr. Mehul Smith in 1-2 weeks. Dictated by... Shiva Raymond/mercedes TD: 12/04/2016 12:16 JOB #: [id number] DISCHARGE SUMMARY Page 1 of 1 X Pablo Juárez MD X DISCHARGE SUMMARY
[2016-11-25 19:03] LABS: POC - CKMB 5.5 ng/mL (0.0-7.9); POC - TROPONIN <0.05 ng/mL (<=0.05)
[2016-11-25 19:17] LABS: BASOPHIL% 0.1 % (0-2.5); HEMATOCRIT 38.6 % (35.0-45.0); HEMOGLOBIN 12.9 gm/dL (12.0-16.0); LYMPHOCYTE# 1.7 X10e3 (1.0-3.5); LYMPHOCYTE% 13.5 % (17.0-45.0); MEAN CELL VOLUME 82.1 FL (83-96); MEAN CORPUSCULAR HEMOGLOBIN 27.4 PG (28-34); MEAN CORPUSCULAR HGB CONC 33.4 g/dL (30-36); MONOCYTE# 0.9 X10e3 (0-1.0); MONOCYTE% 7.2 % (3.0-12.0); NEUTROPHIL# 10.1 X10e3 (1.5-7.1); NEUTROPHIL% 79.2 % (40-75); PLATELET COUNT 330 X10e3 (140-420); RED CELL DISTRIBUTION WIDTH 14.7 % (11.0-15.5); WHITE BLOOD COUNT 12.8 X10e3 (4.0-10.5)
[2016-11-25 19:23] LABS: URINE SOURCE CLEAN CATCH
[2016-11-25 19:24] LABS: DIFF IND NO
[2016-11-25 19:34] LABS: URINE APPEARANCE CLEAR; URINE BILIRUBIN NEG (NEG); URINE BLOOD NEG (NEG); URINE COLOR YELLOW; URINE GLUCOSE 500 MG/DL (NEG); URINE KETONE NEG (NEG); URINE LEUKOCYTE ESTERASE NEG (NEG); URINE NITRATE NEG (NEG); URINE PROTEIN TRACE (NEG); URINE SPECIFIC GRAVITY 1.019 (1.003-1.035); URINE UROBILINOGEN 0.2 MG/DL (NEG)
[2016-11-25 19:36] LABS: PARTIAL THROMBOPLASTIN TIME 27.3 SECONDS (23.5-31.3); PROTHROMBIN TIME (PATIENT) 10.6 SECONDS (10.0-11.7)
[2016-11-25 19:40] LABS: ALBUMIN SERUM 4.2 g/dL (3.5-5.0); BILIRUBIN, DIRECT 0.1 mg/dL (0.0-0.2); BILIRUBIN,INDIRECT 0.8 mg/dL (0.0-0.9); BILIRUBIN,TOTAL 0.9 mg/dL (0.2-2.0); BUN/CREATININE RATIO 31.42; CALCIUM SERUM 9.2 mg/dL (8.4-10.2); CREATININE SERUM 0.7 mg/dL (0.6-1.4); GLOM FILT RATE Estimated 81.3 mL/min (>60); PROTEIN TOTAL SERUM 7.3 g/dL (6.0-8.3)
[2016-11-25 19:45] LABS: CULTURE INDICATED? NO
[2016-11-25 19:55] LABS: ARTERIAL BLOOD GAS PCO2 34.9 mmHg (35.0-45.0); ARTERIAL BLOOD GAS PO2 52.4 mmHg (80.0-100); ARTERIAL BLOOD GAS pH 7.463 (7.350-7.450)
[2016-11-25 19:56] LABS: ARTERIAL BLD GAS O2 SATURATION 87.4 % (90.0-100.0); ARTERIAL BLOOD GAS ART SITE LEFT BRACHIAL; ARTERIAL BLOOD GAS CARBOXY HB 0.7 %sat (0.0-9.0); ARTERIAL BLOOD GAS DELIVERY NASAL CANNULA; ARTERIAL BLOOD GAS HCO3 24.9 mmol/L; ARTERIAL BLOOD GAS MET HB 0.8 %sat (0.0-2.0); ARTERIAL DRAW? YES
[2016-11-25] MEDS ORDERED: LIPITOR80 MG PO (20:22)
[2016-11-25] MEDS ORDERED: SYMBICORT INH (20:22)
[2016-11-25] MEDS ORDERED: GLUCOPHAGE500 MG PO (20:22)
[2016-11-25] MEDS ORDERED: AMLODIPINE BESYL5 MG PO (20:23)
[2016-11-25] MEDS ORDERED: PROZAC PO (20:23)
[2016-11-25] MEDS ORDERED: TENORMIN25 MG PO (20:24)
[2016-11-25] MEDS ORDERED: ALBUTEROL MININEB INH (20:24)
[2016-11-25 20:35] LABS: POC - CKMB 6.1 ng/mL (0.0-7.9); POC - TROPONIN <0.05 ng/mL (<=0.05)
[2016-11-26 05:27] LABS: HEMATOCRIT 37.4 % (35.0-45.0); HEMOGLOBIN 12.8 gm/dL (12.0-16.0); MEAN CELL VOLUME 81.8 FL (83-96); MEAN CORPUSCULAR HEMOGLOBIN 28.1 PG (28-34); MEAN CORPUSCULAR HGB CONC 34.3 g/dL (30-36); MEAN PLATELET VOLUME 7.7 FL (6.5-11.5); RED BLOOD COUNT 4.57 X10e (3.90-5.30); RED CELL DISTRIBUTION WIDTH 14.1 % (11.0-15.5); WHITE BLOOD COUNT 8.9 X10e3 (4.0-10.5)
[2016-11-26 06:36] LABS: CALCIUM SERUM 9.1 mg/dL (8.4-10.2); CREATININE SERUM 0.7 mg/dL (0.6-1.4); GLOM FILT RATE Estimated 81.3 mL/min (>60)
[2016-11-26 21:05] LABS: ARTERIAL BLOOD GAS CARBOXY HB 0.5 %sat (0.0-9.0); ARTERIAL BLOOD GAS HCO3 23.8 mmol/L; ARTERIAL BLOOD GAS MET HB 0.9 %sat (0.0-2.0); ARTERIAL BLOOD GAS PCO2 33.2 mmHg (35.0-45.0); ARTERIAL BLOOD GAS pH 7.465 (7.350-7.450)
[2016-11-26 21:06] LABS: ARTERIAL DRAW? YES
[2016-11-26 21:07] LABS: ARTERIAL BLOOD GAS ALLEN TEST NORMAL; ARTERIAL BLOOD GAS ART SITE RIGHT BRACHIAL; ARTERIAL BLOOD GAS DELIVERY VENTURI MASK
[2016-11-26 23:57] LABS: ARTERIAL BLD GAS O2 SATURATION 97.7 % (90.0-100.0); ARTERIAL BLOOD GAS CARBOXY HB 0.4 %sat (0.0-9.0); ARTERIAL BLOOD GAS HCO3 21.4 mmol/L; ARTERIAL BLOOD GAS MET HB 0.9 %sat (0.0-2.0); ARTERIAL BLOOD GAS PCO2 28.8 mmHg (35.0-45.0); ARTERIAL BLOOD GAS pH 7.481 (7.350-7.450)
[2016-11-27 00:02] LABS: ARTERIAL BLOOD GAS ALLEN TEST NORMAL; ARTERIAL DRAW? YES
[2016-11-27 00:03] LABS: ARTERIAL BLOOD GAS ART SITE LEFT RADIAL
[2016-11-27 04:57] LABS: HEMATOCRIT 36.4 % (35.0-45.0); HEMOGLOBIN 12.4 gm/dL (12.0-16.0); MEAN CELL VOLUME 81.4 FL (83-96); MEAN CORPUSCULAR HEMOGLOBIN 27.7 PG (28-34); MEAN PLATELET VOLUME 8.1 FL (6.5-11.5); RED BLOOD COUNT 4.47 X10e (3.90-5.30); RED CELL DISTRIBUTION WIDTH 14.4 % (11.0-15.5)
[2016-11-27 04:58] LABS: WHITE BLOOD COUNT 17.4 X10e3 (4.0-10.5)
[2016-11-27 05:22] LABS: BUN/CREATININE RATIO 48.33; CALCIUM SERUM 8.6 mg/dL (8.4-10.2); CREATININE SERUM 0.6 mg/dL (0.6-1.4); GLOM FILT RATE Estimated 85.5 mL/min (>60); POTASSIUM 3.3 mmol/L (3.5-5.1)
[2016-11-27 05:41] LABS: ARTERIAL BLD GAS O2 SATURATION 88.4 % (90.0-100.0); ARTERIAL BLOOD GAS CARBOXY HB 0.3 %sat (0.0-9.0); ARTERIAL BLOOD GAS HCO3 24.8 mmol/L; ARTERIAL BLOOD GAS MET HB 0.8 %sat (0.0-2.0); ARTERIAL BLOOD GAS PCO2 40.3 mmHg (35.0-45.0); ARTERIAL BLOOD GAS pH 7.397 (7.350-7.450)
[2016-11-27 05:42] LABS: ARTERIAL BLOOD GAS ART SITE LEFT BRACHIAL; ARTERIAL BLOOD GAS DELIVERY HEATED HIGH FLOW; ARTERIAL BLOOD GAS PO2 56.6 mmHg (80.0-100); ARTERIAL DRAW? YES
[2016-11-28 05:08] LABS: BASOPHIL# 0.1 X10e3 (0-0.3); BASOPHIL% 0.6 % (0-2.5); HEMATOCRIT 36.7 % (35.0-45.0); HEMOGLOBIN 12.3 gm/dL (12.0-16.0); LYMPHOCYTE% 4.9 % (17.0-45.0); MEAN CELL VOLUME 81.7 FL (83-96); MEAN CORPUSCULAR HEMOGLOBIN 27.3 PG (28-34); MEAN CORPUSCULAR HGB CONC 33.5 g/dL (30-36); MONOCYTE# 0.5 X10e3 (0-1.0); MONOCYTE% 2.4 % (3.0-12.0); NEUTROPHIL# 18.4 X10e3 (1.5-7.1); NEUTROPHIL% 92.1 % (40-75); PLATELET COUNT 305 X10e3 (140-420); RED BLOOD COUNT 4.49 X10e (3.90-5.30); RED CELL DISTRIBUTION WIDTH 14.8 % (11.0-15.5)
[2016-11-28 05:11] LABS: DIFF IND YES
[2016-11-28 05:47] LABS: ANISOCYTOSIS SL; PLATELET ESTIMATE NORMAL (NORMAL)
[2016-11-28 06:05] LABS: CALCIUM SERUM 8.1 mg/dL (8.4-10.2); CREATININE SERUM 0.5 mg/dL (0.6-1.4); GLOM FILT RATE Estimated 90.8 mL/min (>60); POTASSIUM 3.7 mmol/L (3.5-5.1)
[2016-11-28 11:38] LABS: SODIUM URINE RANDOM 114 mmol/L
[2016-11-28 13:02] LABS: OSMOLALITY,URINE 640 mOsmo/kg (250-900)
[2016-11-28 14:49] LABS: ARTERIAL BLD GAS O2 SATURATION 96.1 % (90.0-100.0); ARTERIAL BLOOD GAS CARBOXY HB 0.3 %sat (0.0-9.0); ARTERIAL BLOOD GAS HCO3 23.9 mmol/L; ARTERIAL BLOOD GAS MET HB 0.7 %sat (0.0-2.0); ARTERIAL BLOOD GAS PCO2 35.4 mmHg (35.0-45.0); ARTERIAL BLOOD GAS PO2 82.9 mmHg (80.0-100); ARTERIAL BLOOD GAS pH 7.438 (7.350-7.450)
[2016-11-28 14:50] LABS: ARTERIAL BLOOD GAS ALLEN TEST NORMAL; ARTERIAL BLOOD GAS ART SITE LEFT RADIAL; ARTERIAL BLOOD GAS DELIVERY HF; ARTERIAL DRAW? YES
[2016-11-28 17:02] LABS: BUN/CREATININE RATIO 31.66; CREATININE SERUM 0.6 mg/dL (0.6-1.4); GLOM FILT RATE Estimated 85.5 mL/min (>60); POTASSIUM 3.7 mmol/L (3.5-5.1)
[2016-11-29 03:37] LABS: ARTERIAL BLD GAS O2 SATURATION 94.4 % (90.0-100.0); ARTERIAL BLOOD GAS CARBOXY HB 0.5 %sat (0.0-9.0); ARTERIAL BLOOD GAS HCO3 23.1 mmol/L; ARTERIAL BLOOD GAS MET HB 1.1 %sat (0.0-2.0); ARTERIAL BLOOD GAS PCO2 35.3 mmHg (35.0-45.0); ARTERIAL BLOOD GAS pH 7.425 (7.350-7.450)
[2016-11-29 03:40] LABS: ARTERIAL BLOOD GAS ALLEN TEST NORMAL; ARTERIAL BLOOD GAS ART SITE RIGHT RADIAL; ARTERIAL BLOOD GAS DELIVERY HIGHFLOW; ARTERIAL BLOOD GAS PO2 71.1 mmHg (80.0-100); ARTERIAL DRAW? YES
[2016-11-29 03:55] LABS: BASOPHIL# 0.1 X10e3 (0-0.3); BASOPHIL% 0.3 % (0-2.5); HEMATOCRIT 34.6 % (35.0-45.0); HEMOGLOBIN 11.7 gm/dL (12.0-16.0); LYMPHOCYTE# 1.1 X10e3 (1.0-3.5); LYMPHOCYTE% 5.8 % (17.0-45.0); MEAN CELL VOLUME 80.8 FL (83-96); MEAN CORPUSCULAR HEMOGLOBIN 27.3 PG (28-34); MEAN CORPUSCULAR HGB CONC 33.8 g/dL (30-36); MEAN PLATELET VOLUME 8.1 FL (6.5-11.5); MONOCYTE# 1.5 X10e3 (0-1.0); MONOCYTE% 7.8 % (3.0-12.0); NEUTROPHIL# 16.3 X10e3 (1.5-7.1); NEUTROPHIL% 86.1 % (40-75); PLATELET COUNT 301 X10e3 (140-420); RED BLOOD COUNT 4.28 X10e (3.90-5.30); RED CELL DISTRIBUTION WIDTH 14.6 % (11.0-15.5); WHITE BLOOD COUNT 18.9 X10e3 (4.0-10.5)
[2016-11-29 03:56] LABS: DIFF IND NO
[2016-11-29 04:29] LABS: BILIRUBIN,TOTAL 0.8 mg/dL (0.2-2.0); BUN/CREATININE RATIO 38.33; CALCIUM SERUM 7.9 mg/dL (8.4-10.2); CREATININE SERUM 0.6 mg/dL (0.6-1.4); GLOM FILT RATE Estimated 85.5 mL/min (>60); POTASSIUM 3.4 mmol/L (3.5-5.1); PROTEIN TOTAL SERUM 5.7 g/dL (6.0-8.3)
[2016-11-29 14:46] LABS: URINE APPEARANCE CLEAR; URINE BILIRUBIN NEG (NEG); URINE BLOOD 2+ (NEG); URINE COLOR YELLOW; URINE GLUCOSE NEG (NEG); URINE KETONE NEG (NEG); URINE LEUKOCYTE ESTERASE NEG (NEG); URINE NITRATE NEG (NEG); URINE PROTEIN NEG (NEG); URINE SPECIFIC GRAVITY 1.014 (1.003-1.035); URINE UROBILINOGEN 0.2 MG/DL (NEG)
[2016-11-29 14:49] LABS: URBCS1 AUWI 50-100 /[HPF] (0-2); URINE BACTERIA AUWI NEG (NEGATIVE); URINE SQUAMOUS EPITHELIAL CELL NONE SEEN /[HPF]
[2016-11-29 17:09] LABS: CALCIUM SERUM 8.3 mg/dL (8.4-10.2); CREATININE SERUM 0.5 mg/dL (0.6-1.4); GLOM FILT RATE Estimated 90.8 mL/min (>60); POTASSIUM 4.2 mmol/L (3.5-5.1)
[2016-11-30 03:35] LABS: ARTERIAL BLD GAS O2 SATURATION 93.4 % (90.0-100.0); ARTERIAL BLOOD GAS CARBOXY HB 0.5 %sat (0.0-9.0); ARTERIAL BLOOD GAS HCO3 23.9 mmol/L; ARTERIAL BLOOD GAS MET HB 0.9 %sat (0.0-2.0); ARTERIAL BLOOD GAS PCO2 34.5 mmHg (35.0-45.0); ARTERIAL BLOOD GAS pH 7.449 (7.350-7.450)
[2016-11-30 03:37] LABS: ARTERIAL BLOOD GAS ALLEN TEST NORMAL; ARTERIAL BLOOD GAS ART SITE RIGHT RADIAL; ARTERIAL BLOOD GAS DELIVERY HIFLOW; ARTERIAL BLOOD GAS PO2 64.5 mmHg (80.0-100); ARTERIAL DRAW? YES
[2016-11-30 05:55] LABS: HEMOGLOBIN 12.3 gm/dL (12.0-16.0); MEAN CORPUSCULAR HEMOGLOBIN 26.9 PG (28-34); MEAN CORPUSCULAR HGB CONC 33.2 g/dL (30-36); MEAN PLATELET VOLUME 7.8 FL (6.5-11.5); RED BLOOD COUNT 4.57 X10e (3.90-5.30); RED CELL DISTRIBUTION WIDTH 14.2 % (11.0-15.5); WHITE BLOOD COUNT 16.6 X10e3 (4.0-10.5)
[2016-11-30 06:39] LABS: ALBUMIN SERUM 2.9 g/dL (3.5-5.0); BILIRUBIN,TOTAL 0.7 mg/dL (0.2-2.0); BUN/CREATININE RATIO 31.66; CALCIUM SERUM 8.3 mg/dL (8.4-10.2); CREATININE SERUM 0.6 mg/dL (0.6-1.4); GLOM FILT RATE Estimated 85.5 mL/min (>60); POTASSIUM 4.2 mmol/L (3.5-5.1); PROTEIN TOTAL SERUM 5.7 g/dL (6.0-8.3)
[2016-12-01 03:31] LABS: HEMATOCRIT 38.6 % (35.0-45.0); HEMOGLOBIN 12.7 gm/dL (12.0-16.0); MEAN CELL VOLUME 81.3 FL (83-96); MEAN CORPUSCULAR HEMOGLOBIN 26.8 PG (28-34); MEAN PLATELET VOLUME 7.9 FL (6.5-11.5); RED BLOOD COUNT 4.75 X10e (3.90-5.30); RED CELL DISTRIBUTION WIDTH 14.6 % (11.0-15.5); WHITE BLOOD COUNT 14.9 X10e3 (4.0-10.5)
[2016-12-01 04:01] LABS: BLOOD UREA NITROGEN 20 mg/dL (9-23); CARBON DIOXIDE 27 mmol/L (22-31); CHLORIDE 98 mmol/L (100-111); CREATININE SERUM 0.5 mg/dL (0.6-1.4); GLOM FILT RATE Estimated 90.8 mL/min (>60); GLUCOSE FASTING 191 mg/dL (70-110); MAGNESIUM 2.4 mg/dL (1.6-3.0); PHOSPHOROUS 2.4 mg/dL (2.5-4.6); SODIUM 130 mmol/L (135-145)
[2016-12-01 04:35] LABS: PROCALCITONIN <0.05 NG/ML
[2016-12-02 06:37] LABS: BUN/CREATININE RATIO 33.33; CALCIUM SERUM 8.2 mg/dL (8.4-10.2); CREATININE SERUM 0.6 mg/dL (0.6-1.4); GLOM FILT RATE Estimated 85.5 mL/min (>60); PHOSPHOROUS 2.6 mg/dL (2.5-4.6); POTASSIUM 4.1 mmol/L (3.5-5.1)
[2016-12-03 06:59] LABS: CALCIUM SERUM 8.3 mg/dL (8.4-10.2); CREATININE SERUM 0.5 mg/dL (0.6-1.4); GLOM FILT RATE Estimated 90.8 mL/min (>60); POTASSIUM 3.9 mmol/L (3.5-5.1)
[2016-12-03] MEDS ORDERED: LEVAQUIN750 MG PO (15:02)
[2016-12-03] MEDS ORDERED: PREDNISONE PO (15:03)
[2016-12-03] MEDS ORDERED: HUMIBID-LA600 MG PO (15:04)
[2016-12-03] MEDS ORDERED: FLOMAX0.4 M1 PO (15:08)
== END 2016-12-03 16:45 | disposition home health service (06) | DRG 189 ==
LOC: CED 17:48 → CICCU2 21:15 → CEDOF 21:15 → C5B 21:15 → CED 21:36 → CEDOF 21:36 → C5B 21:36 → CEDOF 23:05 → C5B 23:05 → CICCU3 11-27 00:39 → CICCU2 11-27 02:45 → CICCU3 11-30 18:07 → C3A PCU 12-01 16:26
PROVIDERS: Emergency Medicine; Internal Medicine; Internal Medicine Endocrinology, Diabetes & Metabolism; Internal Medicine Nephrology; Internal Medicine Pulmonary Disease
PROC: 02HV33Z Insertion of Infusion Device into Superior Vena Cava, Percutaneous Approach (ICD-10-PCS; 2016-11-28)
PROC: 4A02X4A Measurement of Cardiac Electrical Activity, Guidance, External Approach (ICD-10-PCS; 2016-11-28)
PROC: B548ZZA Ultrasonography of Superior Vena Cava, Guidance (ICD-10-PCS; 2016-11-28)
PROC: B246YZZ Ultrasonography of Right and Left Heart using Other Contrast (ICD-10-PCS; principal; 2016-12-01)
DX: J96.21 Acute and chronic respiratory failure with hypoxia (principal); J15.1 Pneumonia due to Pseudomonas; G92 Toxic encephalopathy; E22.2 Syndrome of inappropriate secretion of antidiuretic hormone; J44.0 Chronic obstructive pulmonary disease with (acute) lower respiratory infection; J44.1 Chronic obstructive pulmonary disease with (acute) exacerbation; E11.9 Type 2 diabetes mellitus without complications; R33.9 Retention of urine, unspecified; M19.90 Unspecified osteoarthritis, unspecified site; F32.9 Major depressive disorder, single episode, unspecified; E78.5 Hyperlipidemia, unspecified; I10 Essential (primary) hypertension; Z96.643 Presence of artificial hip joint, bilateral; Z87.891 Personal history of nicotine dependence; Z79.84 Long term (current) use of oral hypoglycemic drugs
CPT/HCPCS: 36415; 36600; 51701; 70450; 71010; 71275; 74000; 80048; 80053; 80076; 81003; 82308; 82553; 82803; 82947; 83735; 83880; 83930; 83935; 84100; 84300; 84443; 84484; 84550; 85025; 85027; 85379; 85610; 85730; 87070; 87077; 87186; 87205; 87449; 93005; 93306; 94640; 94660; 94664; 94760; 94761; 96374; 97110; 97116; 97162; 97530; 99285; C9113; G8978-GP; G8979-GP; J0692; J0696; J1630; J1650; J1815; J1940; J1956; J2405; J2543; J2920; J2930; J3475; Q9967

== ENCOUNTER 2016-12-04 19:34 | Inpatient (IN) | payer OTHER ==
[~2016-12-04] VITALS: Ht 167.6 cm; Wt 54.6 kg
--- NOTE | ~2016-12-04 | EKG ---
PATIENT: JUAN ANTONIO ALFARO UNIT #: [id number] Ventricular Rate: 70 BPM Atrial Rate: 70 BPM P-R Interval: 136 ms QRS Duration: 126 ms Q-T Interval: 418 ms QTC Calculation(Bezet): 451 ms P [place]: 68 degrees Calculated R [place]: 32 degrees Calculated T [place]: 40 degrees Diagnosis Line: Sinus rhythm with Premature atrial complexes Diagnosis Line: Right bundle branch block Diagnosis Line: Abnormal ECG Diagnosis Line: When compared with ECG of 04-DEC-2016 20:33, Diagnosis Line: (unconfirmed) Diagnosis Line: Premature atrial complexes are now Present Diagnosis Line: Confirmed by DORINDA ROJAS MD ([id number]) on 12/06/2016 Diagnosis Line: 5:51:02 PM INTERPRETING MD: BBO BASILIO
--- NOTE | ~2016-12-04 | DS ---
Unit #: [id number] #: [id number] Patient: JUAN ANTONIO ALFARO [id number] [address] [address] [id number] I MR#: [id number] NAME: JUAN ANTONIO ALFARO ROOM: 317 Age: 81 Sex: F Admission Date: 12/04/2016 : 1935 Discharge Date: 12/10/2016 Attending Physician: Mustapha Keating M.D. DISCHARGE SUMMARY ADMITTING DIAGNOSES 1. Syncope. 2. Hyponatremia. 3. Diabetes mellitus type 2. 4. Hypertension. 5. Hyperlipidemia. 6. Chronic obstructive pulmonary disease. 7. Right bundle branch block. 8. Recent admission with pneumonia, exacerbation of chronic obstructive pulmonary disease, toxic metabolic encephalopathy, and urinary tract infection. DISCHARGE DIAGNOSES 1. Syncope. 2. Hyponatremia. 3. Diabetes mellitus type 2. 4. Hypertension. 5. Hyperlipidemia. 6. Chronic obstructive pulmonary disease. 7. Right bundle branch block. 8. Recent admission with pneumonia, exacerbation of chronic obstructive pulmonary disease, toxic metabolic encephalopathy, and urinary tract infection. 9. Orthostatic hypotension. 10. Urinary retention. CHEMICAL ETCHING PROCESSOR Dr. Casillas with Urology. PROCEDURE PERFORMED She had a 2D echo Doppler which showed moderate and normal LV function. HOSPITAL COURSE The patient is an 81-year-old female who presented to the hospital with complaints of syncope. She had stood up to answer the door, felt weak and lightheaded, and then passed out. She was found to have orthostatic hypotension, and her Tenormin and Norvasc were discontinued. She then had short bursts of SVT, and Lopressor was added back at 12.5 mg twice daily. Her Flomax was also discontinued. She continued to have some orthostasis, and midodrine 5 mg t.i.d. was added. The patient then continued to have some orthostasis, but this was asymptomatic. She did continue to have problems with urinary retention and was requiring straight cath during her hospital stay. This was discussed with Unit #: [id number] #: [id number] Patient: JUAN ANTONIO ALFARO, and he advised she go home with a Becker catheter and follow in their clinic in one week. She was evaluated for rehab but was denied given she was able to walk 50 feet without difficulty. At the time of discharge, vitals are stable with blood pressure 113/67, heart rate 63 and regular, respirations 19 and regular, and temperature 98.6. Physical exam was unremarkable other than she had a 2/6 systolic murmur and she was thin and frail. DISCHARGE MEDICATIONS 1. Metformin 500 mg twice daily. 2. Symbicort 160/4.5 at 2 puffs b.i.d. 3. Prozac 20 mg daily. 4. Albuterol inhalation q.i.d. 5. Levaquin 750 mg daily until completed. 6. Prednisone 10 mg tapered dose. 7. Lopressor 12.5 mg b.i.d. 8. Midodrine 5 mg q.8 hours. 9. Aspirin 81 mg daily. 10. Humibid-LA 600 mg twice daily. 11. Lipitor 80 mg at bedtime. FOLLOWUP 1. With her urologist, Dr. Casillas, in one week. There was also discussion of outpatient cystoscopy. 2. With Dr. Mason in two to four weeks. 3. She will continue to be followed by [facility]. 1. Dictated by... Petty Foley P.A.C. for Archie Mason M.D. SILVIA/jaime TD: 12/13/2016 16:24 JOB #: [id number] DISCHARGE SUMMARY Page 1 of 1 X X DISCHARGE SUMMARY
--- NOTE | ~2016-12-04 | EKG ---
PATIENT: JUAN ANTONIO ALFARO UNIT #: [id number] Ventricular Rate: 74 BPM Atrial Rate: 74 BPM P-R Interval: 120 ms QRS Duration: 122 ms Q-T Interval: 428 ms QTC Calculation(Bezet): 475 ms P [place]: 61 degrees Calculated R [place]: 14 degrees Calculated T [place]: 23 degrees Diagnosis Line: Normal sinus rhythm with sinus arrhythmia Diagnosis Line: Right bundle branch block Diagnosis Line: Abnormal ECG Diagnosis Line: When compared with ECG of 25-NOV-2016 18:55, Diagnosis Line: Premature atrial complexes are no longer Present Diagnosis Line: Confirmed by NORMA OLVERA MD ([id number]) on Diagnosis Line: 12/06/2016 4:45:06 PM INTERPRETING MD: ABUNDIO
--- NOTE | ~2016-12-04 | CR72 ---
[facility] A Service of [facility] & [facility] RADIOLOGY TEXT RESULTS PATIENT: JUAN ANTONIO ALFARO LOCATION: [facility] 317-01 : 35 UNIT #: [id number] AGE: [address]: Mustapha Keating MD SEX: F ORDER DR: [id number] [facility] [address] [facility] [place], [place] [address] [id number] I MR#: [id number] #: [id number] NAME: JUAN ANTONIO ALFARO : 1935 SEX: F STUDY DATE/TIME: 12/04/2016 20:38 UNIT: [address] ROOM: [facility] STUDY DESCRIPTION: CR Chest Single View Portable Attending Physician: Mustapha Keating M.D. Ordering Physician: Phan Lundy M.D. Primary Care Physician: Primary Care Physician No MEDICAL IMAGING REPORT This report is preliminary unless electronic signature is present EXAM AP portable chest, 12/04/2016 HISTORY 81-year-old female with dizziness, syncope, weakness and shortness breath today. Fell. COMPARISON AP portable chest 11/30/2016. CT chest PE protocol 11/30/2016. FINDINGS No acute airspace disease. Normal heart size. No pleural effusion or pneumothorax. IMPRESSION No acute cardiopulmonary findings. Dictated by... Dolores Montenegro M.D. THIS IS AN ELECTRONICALLY VERIFIED REPORT Dolores Montenegro M.D. at 12/05/2016 1:55 PM CARMEN/tamar TD: 12/05/2016 11:01 JOB #: [id number] MEDICAL IMAGING REPORT Page 1 of 1 COPY
--- NOTE | ~2016-12-04 | CO ---
Unit #: [id number] #: [id number] Patient: JUAN ANTONIO ALFARO [id number] [address] [address] [id number] I MR#: [id number] NAME: JUAN ANTONIO ALFARO ROOM: 317 Age: 81 Sex: F Admission Date: 12/04/2016 : 1935 Attending Physician: Mustapha Keating M.D. Consultation Date: 12/07/2016 CONSULTATION REPORT REASON FOR CONSULTATION 1. Urinary retention. 2. Microscopic hematuria. HISTORY OF PRESENT ILLNESS The patient is a pleasant 81-year-old female who was admitted on December 05, 2016, with weakness and feeling lightheaded. She may have had loss of consciousness, and EMS was called. The patient had been admitted for acute hypoxic respiratory failure, pneumonia, hyponatremia, and urinary tract infection from November 25 through December 03, 2016. She was found to have urinary retention at that time, and a Becker catheter was placed. Patient states that when she is at home, she is able to void, but she is having no leakage of urine. However, she had 900 mL when a Becker catheter was placed previously. She is currently undergoing in and out catheterization. She is on Flomax. It is a little unclear how long she has been on the Flomax. She also had microscopic hematuria on her urinalysis from November 29, 2016. PAST MEDICAL HISTORY 1. COPD. 2. Type 2 diabetes. 3. Hyperlipidemia. 4. Hypertension. 5. Degenerative joint disease. 6. Recent weight loss. 7. History of tobacco abuse, quitting one year ago. 8. Right bundle branch block on EKG. 9. Depression. PAST SURGICAL HISTORY Bilateral total hip replacements. HOME MEDICATIONS 1. Glucophage. 2. Lipitor. 3. Symbicort. 4. Amlodipine. 5. Prozac. 6. Albuterol. 7. Tenormin. 8. Flomax. 9. Levaquin. 10. Prednisone. 11. Humibid. Unit #: [id number] #: [id number] Patient: JUAN ANTONIO ALFARO ALLERGIES No known drug allergies. SOCIAL HISTORY She lives alone. She has been followed by [facility]. Positive for tobacco use. She quit one year ago. Negative for alcohol or drug use. FAMILY HISTORY Noncontributory. REVIEW OF SYSTEMS A 12-point review of systems was obtained and is positive for weight loss and urinary retention, as well as lightheadedness and dizziness. Also positive for generalized weakness. Negative for gross hematuria or dysuria. PHYSICAL EXAMINATION GENERAL: An elderly white female in no acute distress. VITAL SIGNS: Temperature 97.7, blood pressure 124/76, and pulse 98. HEENT: Normocephalic and atraumatic. Extraocular movements are intact. NECK: Supple. No lymphadenopathy. LUNGS: Normal air movement and unlabored respirations. HEART: Regular rate and rhythm. EXTREMITIES: No clubbing, cyanosis, or edema. ABDOMEN: Soft, nontender, and nondistended. No rebound or guarding. ASSESSMENT AND PLAN 1. Microscopic hematuria. Will work this up with a CT of the abdomen and pelvis, as well as a cystoscopy. 2. Urinary retention. We will stop her Flomax as she has had a possible episode of (1) , and this could certainly exacerbate that. Will continue her in and out catheterizations at this time. 1. Dictated by... Phan Casillas M.D. TUCKER/jaime TD: 12/07/2016 20:55 JOB #: [id number] CONSULTATION REPORT Page 1 of 1 X Phan Casillas MD X CONSULTATION REPORT
--- NOTE | ~2016-12-04 | CT3 ---
[facility] A Service of [facility] RADIOLOGY TEXT RESULTS PATIENT: JUAN ANTONIO ALFARO LOCATION: C3A 317-01 : 35 UNIT #: [id number] AGE: [address]: Mustapha Keating MD SEX: F ORDER DR: [id number] [facility] [address]. [place], [place] [address] [id number] MR#: [id number] #: [id number] NAME: JUAN ANTONIO ALFARO : 1935 SEX: F STUDY DATE/TIME: 12/07/2016 19:18 UNIT: C3A PCU ROOM: 317 STUDY DESCRIPTION: CT Abd and Pelv WWo Cont Attending Physician: Mustapha Keating M.D. Ordering Physician: Phan Casillas M.D. Primary Care Physician: Primary Care Physician No MEDICAL IMAGING REPORT This report is preliminary unless electronic signature is present EXAM CT scan of the abdomen and pelvis with and without contrast 12/07/2016 HISTORY Microhematuria for 2 days. Urine retention. TECHNIQUE Spiral CT was performed through the abdomen and pelvis without intravenous contrast administration using renal stone protocol. Subsequently, multiphase spiral CT was then performed through the abdomen and pelvis following intravenous contrast administration. This CT exam was performed with one or more of the following radiation dose reduction techniques: Automatic exposure control, adjustment of mA and/or kV according to patient size, and iterative reconstruction. FINDINGS ABDOMEN: Noncontrast images of the abdomen and pelvis demonstrate no obstructing renal or ureteral calculus. There are multiple bilateral renal cysts. However, noncontrast images show a hyperdense 1.2-cm nodule along the posterior aspect of the ssj-zn-weeal pole of the right kidney. This shows minimal enhancement following contrast administration and I cannot exclude renal carcinoma, on the basis of this examination. Clinical correlation is recommended. There is fatty infiltration of the liver. The spleen, pancreas, gallbladder and biliary tree and adrenal glands are normal. PELVIS FINDINGS: The gut, mesenteric and ratna structures are normal. Images of the pelvis are degraded somewhat by artifact from the patient's bilateral hip prostheses. Images of the lung bases demonstrate atelectasis at the right lung base. IMPRESSION STS. [facility] A Service of [facility] RADIOLOGY TEXT RESULTS PATIENT: JUAN ANTONIO ALFARO LOCATION: C3A 317-01 : 35 UNIT #: [id number] AGE: [address]: Mustapha Keating MD SEX: F ORDER DR: 1. There are multiple bilateral renal cysts. 2. On the posterior aspect of the afi-sb-zzrse pole of the right kidney, there is a 1.2-cm hyperdense lesion on noncontrast images which shows very minimal enhancement following contrast administration. I cannot exclude renal carcinoma, on the basis of this examination. Clinical correlation is recommended. 3. No obstructing renal or ureteral calculus. 4. Fatty infiltration of the liver. 5. Images of the pelvis are degraded somewhat by the patient's bilateral hip prostheses. STAT * RESULT Dictated by... Haroon Madrigal M.D. THIS IS AN ELECTRONICALLY VERIFIED REPORT Haroon Madrigal M.D. at 12/08/2016 2:14 PM PATITO/elton TD: 12/07/2016 20:37 JOB #: [id number] MEDICAL IMAGING REPORT Page 1 of 1 COPY
--- NOTE | ~2016-12-04 | HP ---
Unit #: [id number] #: [id number] Patient: JUAN ANTONIO GARRISON [id number] [address] [address] [id number] I MR#: [id number] NAME: JUAN ANTONIO GARRISON ROOM: 317 Age: 81 Sex: F Admission Date: 12/04/2016 : 1935 Attending Physician: Mustapha Keating M.D. Primary Care Physician: Jatinder HISTORY AND PHYSICAL HISTORY OF PRESENT ILLNESS This is an 81-year-old, white female with no reported significant cardiac history. She just got out of this hospital with the hospitalization from 11/25 to with acute hypoxic respiratory failure, pneumonia, exacerbation of COPD, toxic metabolic encephalopathy, hyponatremia and UTI. According to the patient, she was home earlier part of the week. What precipitated her readmission was she was sitting on the couch and someone rang her doorbell. She got up to go answer the door, and on her way to do that, she started feeling weak and lightheaded. By the time she reached the door, she knew she was going to pass out, but she fell back. She felt like she had loss of consciousness for at least a minute or so. Her neighbor, who was at the door, called EMS. She denies any chest pain, palpitations. Did not have any shortness of breath. No diaphoresis. No nausea, vomiting or diarrhea. She said she has been just really weak since her discharge. The patient was admitted for further evaluation and management. PAST MEDICAL HISTORY 1. Recent admission 11/25 to 12/03/2016 with acute hypoxic respiratory failure, pneumonia, exacerbation of COPD, toxic metabolic encephalopathy, hyponatremia and UTI. 2. Diabetes mellitus type 2. 3. Hyperlipidemia. 4. Hypertension. 5. COPD, home oxygen. 6. Degenerative joint disease. 7. Recent weight loss. 8. Quit smoking one year ago. 9. Right bundle branch block on EKG, which is old. 10. Depression. 11. No stress or cardiac cath in the past. PAST SURGICAL HISTORY 1. Right total hip replacement. 2. Left total hip replacement. HOME MEDICATIONS 1. Glucophage 500 mg p.o. b.i.d. 2. Lipitor 80 mg p.o. at bedtime. 3. Symbicort 160 mcg/4.5 mcg 2 puffs inhalation b.i.d. 4. Amlodipine 5 mg p.o. daily. 5. Prozac 20 mg p.o. daily. 6. Albuterol inhalation q.i.d. 7. Tenormin 25 mg p.o. daily. Unit #: [id number] #: [id number] Patient: JUAN ANTONIO GARRISON 8. Levaquin 750 mg p.o. daily. 9. Prednisone 10 mg p.o. daily before breakfast. 10. Humibid LA 600 mg p.o. b.i.d. 11. Flomax 0.4 mg p.o. at bedtime. ALLERGIES No known drug allergies. SOCIAL HISTORY The patient lives in an apartment alone. She has some friends who check on her. She has [facility] and home health since her discharge. She quit smoking about a year ago. No alcohol or illicit drug abuse. FAMILY HISTORY Noncontributory. REVIEW OF SYSTEMS CONSTITUTIONAL: Denies fevers or chills. No recent weight gain but has lost weigh over the past few weeks due to her medical conditions. HEENT: No visual or hearing changes. No lymphadenopathy, thyromegaly. No difficulty swallowing. CARDIOVASCULAR: Denies chest pain. Denies palpitations. Denies increased lower extremity edema. PULMONARY: Denies shortness of breath. Denies paroxysmal nocturnal dyspnea or orthopnea. GI: Denies nausea, vomiting, diarrhea or abdominal pain. NEUROLOGIC: Just generalized weakness. Had some lightheadedness and dizziness. PHYSICAL EXAMINATION GENERAL: On exam, Ms. Garrison is an 81-year-old white female in no acute respiratory distress. She is awake, alert, answers most questions appropriately. VITAL SIGNS: Blood pressure is 132/69, heart rate 80, respirations 16, temperature 97.7, O2 sats 98% on room air. NECK: Trachea is midline. No thyromegaly or lymphadenopathy. No jugular venous distention. Conductive bruits noted. HEART: S1, S2, regular rate and rhythm. Soft systolic murmur over the aortic region, left sternal border. LUNGS: Diminished; otherwise, clear. ABDOMEN: Soft, flat, nontender. EXTREMITIES: Pedal pulses are faint but present. No pedal edema. DIAGNOSTIC STUDIES LABORATORY DIAGNOSTIC DATA: Glucose 244, BUN 22, creatinine 0.8, eGFR 69.2, sodium 130, potassium 4.3, chloride 97, CO2 22, calcium 8.7, magnesium 2, total protein 5.9, albumin 3.1, bili total 0.5, AST 24, ALT 17, alkaline phosphatase 55. BNP is 68. TSH was 0.72. WBC is 10, hemoglobin 12.1, hematocrit 36.3, platelets 214. Cardiac enzymes - CK total 55, MB 3.9, percentage of MB 5.7, troponin 0.03. IMAGING: Chest x-ray shows no acute air space disease. Normal heart size. CARDIOVASCULAR: EKG shows normal sinus rhythm with a right bundle branch block. Ventricular rate is 74 beats per minute. Early repolarization. Nonspecific ST-T wave abnormalities. IMPRESSION Unit #: [id number] #: [id number] Patient: JUAN ANTONIO GARRISON 1. Syncopal episode, probable orthostatic hypotension. 2. Hyponatremia. 3. Diabetes mellitus type 2. 4. History of hypertension. 5. Hyperlipidemia. 6. COPD. 7. Right bundle branch block on EKG. 8. Recent admission for pneumonia, hyponatremia, acute hypoxic respiratory failure, exacerbation of COPD, toxic metabolic encephalopathy and urinary tract infection. PLAN 1. The patient has been admitted for further evaluation. 2. Will obtain orthostatic vital signs to evaluate for hypotension. On interview and exam it sounds like when she got up and walked across the room, she started developing more pronounced symptoms of weakness and then got dizzy and then briefly passed out. She states she did not sustain any injuries. She did not hit her head. She was only out for a minute or so. Her neighbor was there. 3. Will obtain a two-D echo to evaluate her LV function and valves. She does have a systolic murmur; more likely some aortic stenosis. 4. Will stop her Norvasc and Tenormin for now to monitor her blood pressure. When she came in, her blood pressure was somewhat low at 109/76. 5. Will put SCDs for DVT prophylaxis. 6. On exam, there are no signs or symptoms of unstable angina or acute congestive heart failure. Her cardiac enzymes are negative. TSH was normal. May need ischemic heart disease workup at a later date. 7. Further recommendations pending per Dr. Mason. Dictated by Teri Medrano.R.N. for Shiva Mayes/mercedes TD: 12/05/2016 15:56 JOB #: [id number] HISTORY AND PHYSICAL Page 1 of 1 X Paloma Fernandes APRN X HISTORY AND PHYSICAL
[~2016-12-04 19:34] MED LIST changes: +ALBUTEROL MININEB INH; +AMLODIPINE BESYL5 MG PO; +FLOMAX0.4 M1 PO; +GLUCOPHAGE500 MG PO; +HUMIBID-LA600 MG PO; +LEVAQUIN750 MG PO; +LIPITOR80 MG PO; +PREDNISONE PO; +PROZAC PO; +SYMBICORT INH; +TENORMIN25 MG PO
[2016-12-04 20:36] LABS: BASOPHIL% 0.2 % (0-2.5); HEMATOCRIT 36.3 % (35.0-45.0); HEMOGLOBIN 12.1 gm/dL (12.0-16.0); LYMPHOCYTE# 0.3 X10e3 (1.0-3.5); LYMPHOCYTE% 3.3 % (17.0-45.0); MEAN CELL VOLUME 82.4 FL (83-96); MEAN CORPUSCULAR HEMOGLOBIN 27.5 PG (28-34); MEAN CORPUSCULAR HGB CONC 33.4 g/dL (30-36); MEAN PLATELET VOLUME 7.9 FL (6.5-11.5); MONOCYTE# 0.3 X10e3 (0-1.0); NEUTROPHIL# 9.4 X10e3 (1.5-7.1); NEUTROPHIL% 93.5 % (40-75); PLATELET COUNT 214 X10e3 (140-420); RED BLOOD COUNT 4.41 X10e (3.90-5.30); RED CELL DISTRIBUTION WIDTH 14.7 % (11.0-15.5); WHITE BLOOD COUNT 10.1 X10e3 (4.0-10.5)
[2016-12-04 20:37] LABS: DIFF IND NO
[2016-12-04 21:23] LABS: ALBUMIN SERUM 3.1 g/dL (3.5-5.0); BILIRUBIN, DIRECT 0.1 mg/dL (0.0-0.2); BILIRUBIN,INDIRECT 0.3 mg/dL (0.0-0.9); BILIRUBIN,TOTAL 0.4 mg/dL (0.2-2.0); BUN/CREATININE RATIO 27.5; CALCIUM SERUM 8.7 mg/dL (8.4-10.2); CREATININE SERUM 0.8 mg/dL (0.6-1.4); GLOM FILT RATE Estimated 69.2 mL/min (>60); POTASSIUM 4.3 mmol/L (3.5-5.1); PROTEIN TOTAL SERUM 5.9 g/dL (6.0-8.3)
[2016-12-05 06:57] LABS: %MB 5.7 % (0.0-4.0); MB 3.9 ng/ml
[2016-12-05 11:01] LABS: CK TOTAL 55 IU/L (26-140)
[2016-12-07 06:40] LABS: BUN/CREATININE RATIO 31.42; CALCIUM SERUM 8.7 mg/dL (8.4-10.2); CREATININE SERUM 0.7 mg/dL (0.6-1.4); GLOM FILT RATE Estimated 81.3 mL/min (>60); MAGNESIUM 1.8 mg/dL (1.6-3.0); POTASSIUM 3.7 mmol/L (3.5-5.1)
[2016-12-10] MEDS ORDERED: LOPRESSOR PO (14:22)
[2016-12-10] MEDS ORDERED: PRO-AMATINE5 M1 PO (14:24)
[2016-12-10] MEDS ORDERED: ASPIRIN81 MG PO (14:25)
== END 2016-12-10 15:39 | disposition home or self-care (01) | DRG 312 ==
LOC: CED 19:34 → CEDOF 22:07 → C3A PCU 22:33 → CEDOF 22:33 → CED 22:33 → C3A PCU 22:33 → CEDOF 12-05 00:52 → C3A PCU 12-05 00:52
PROVIDERS: Emergency Medicine; Internal Medicine Cardiovascular Disease
DX: I95.1 Orthostatic hypotension (principal); J44.9 Chronic obstructive pulmonary disease, unspecified; Z99.81 Dependence on supplemental oxygen; E87.1 Hypo-osmolality and hyponatremia; I47.1 Supraventricular tachycardia; E11.9 Type 2 diabetes mellitus without complications; E78.5 Hyperlipidemia, unspecified; I10 Essential (primary) hypertension; M19.90 Unspecified osteoarthritis, unspecified site; Z87.891 Personal history of nicotine dependence; F32.9 Major depressive disorder, single episode, unspecified; Z96.643 Presence of artificial hip joint, bilateral; Z79.4 Long term (current) use of insulin; I45.10 Unspecified right bundle-branch block; R33.9 Retention of urine, unspecified; R31.29 Other microscopic hematuria; I35.0 Nonrheumatic aortic (valve) stenosis; N28.89 Other specified disorders of kidney and ureter
CPT/HCPCS: 71010; 74178; 80048; 80076; 82550; 82553; 82947; 83735; 84484; 85025; 93005; 93306; 94640; 94664; 94760; 96360; 97110; 97116; 97162; 97165; 97530; 97535; 99285; G8978-GP; G8979-GP; G8987-GO; G8988-GO; G8989-GO; J1815; Q9967